=== PATIENT | female | born 1975 | race Caucasian/White ===

== ENCOUNTER 2018-12-02 14:26 | Emergency (ER) | payer SELFPAY ==
[~2018-12-02] VITALS: Ht 167.6 cm; Wt 81.6 kg
[2018-12-02] MEDS ORDERED: NS IV 1000 ML 1,000 ML IV SCH ×2 (14:50)
[2018-12-02] MEDS ORDERED: KETOROLAC 30 MG/ML VIAL IVP ONE (15:00)
[2018-12-02] MEDS ORDERED: ONDANSETRON 4 MG/2 ML (SDV) Z0FRAN IVP ONE ×2 (15:00→16:30)
[2018-12-02] MEDS ORDERED: CEFEPIME INJECTION 1,000 MG in WATER (STERILE) FOR INJECTION 10 ML IV ONE (15:00)
--- NOTE | 2018-12-02 15:01 | ED General ---
General Chief Complaint: General Problems/Pain Stated Complaint: TIRED, BLOOD IN URINE Nursing Triage Note: PT STATES SHE HAS HAD DARK URINE. PT IS RESPONSIVE TO VOICE AND STATES SHE IS WEAK AND TIRED. PT STATES WHEN SHE WIPES SHE HAS BLOOD ON THE TOILET PAPER. PT STATES [place] DISCHARGE FROM VAGINA. PT HAS HISTORY OF MIGRAINES. Nursing Sepsis Screen: No Definite Risk Source of Information: Patient, Spouse Exam Limitations: No Limitations History of Present Illness Date Seen by Provider: Dec 02, 2018 Time Seen by Provider: 14:42 Initial Comments Patient presents to the ER by private conveyance with her and chief complaint she's been very tired today and having some epigastric pain as well as suprapubic pain and dysuria. She's also noted in the last day or so some richmond non-malodorous discharge from the vagina. Last menstrual period started 11/25/18. She does not have her control on board. She's had an appendectomy when she was 13 as well as small amount of small bowel was removed and her right tube and ovary at the same time. She had a . . She is having nausea without vomiting. She says her stools are green but normal formed and not any diarrhea. Her symptoms of been going on for the past 2 weeks. At the beginning of her symptoms she went to the ER in [place] and they gave her a liter fluids told her she had gastroenteritis and send her home. The fluids made her feel better. She followed up with her primary care doctor because they did a CT of her abdomen which showed something concerning about her pancreas. He also noted she had some red blood cells in her urinalysis and she has seen gross blood on wiping that she thinks is from the urethra. She's post to follow-up with urology as well as primary care. She went to the walk-in clinic Sunday, 3 days ago and they just told her that she had tests that they were trying to get set up outpatient and there was nothing they could do on the weekend about it. Her latest bout of fatigue and abdominal pain started today after her left for work. He came home to get her bring her in when she called him. She feels chills. She has fibromyalgia and uses muscle relaxants and Fioricet. She uses Fioricet 1 tablet 2 hours ago. Allergies and Home Medications Allergies Coded Allergies: amoxicillin (Verified Adverse Reaction, Unknown, Puts her in a bad place, 12/02/18) clavulanic acid (Verified Adverse Reaction, Unknown, Puts her in a bad place, 12/02/18) sulfamethoxazole (Verified Adverse Reaction, Unknown, 12/02/18) trimethoprim (Verified Adverse Reaction, Unknown, 12/02/18) Patient Home Medication List Home Medication List Reviewed: Yes Review of Systems Review of Systems Constitutional: chills; No diaphoresis; fever, malaise, weakness EENTM: No hearing loss, No ear pain Respiratory: No cough, No short of breath Cardiovascular: No chest pain, No edema Gastrointestinal: abdominal pain (suprapubic and epigastric); No constipation, No diarrhea, No nausea Genitourinary: No discharge; dysuria, hematuria LMP: Nov 25, 2018 Musculoskeletal: No back pain, No joint pain Past Seblbxq-Kilnkr-Icjmjo Hx Patient Social History Alcohol Use: Occasionally Uses Recreational Drug Use: No Smoking Status: Current Everyday Smoker Type Used: Cigarettes Recent Foreign Travel: No Contact w/Someone Who Travel: No Recent Infectious Disease Expo: No Physical Exam-Suspected Sepsis Physical Exam Vital Signs Vital Signs - First Documented 12/02/18 14:34 Temp 100.6 Pulse 80 Resp 18 B/P (MAP) 124/86 (99) Pulse Ox 98 O2 Delivery Room Air Capillary Refill : Less Than 3 Seconds Blood Pressure Mean: 99 Height, Weight, BMI Height: 5'6.00" Weight: 180lbs. oz. 81.236399ki; BMI Method:Stated General Appearance: Mild Distress, Other Eyes: Bilateral Eye Normal Inspection, Bilateral Eye PERRL, Bilateral Eye EOMI HEENT: PERRL/EOMI, TMs Normal, Normal ENT Inspection; No Moist Mucous Membranes Neck: Full Range of Motion, Normal Inspection, Non Tender Respiratory: Lungs Clear, Normal Breath Sounds, No Accessory Muscle Use, No Respiratory Distress Cardiovascular: Regular Rate, Rhythm, No Edema, Normal Peripheral Pulses Gastrointestinal: Normal Bowel Sounds, Non Tender, Soft Extremity: Normal Capillary Refill, Normal Inspection, No Pedal Edema Neurologic/Psychiatric: Alert, Oriented x3, Other (slow speech, flat affect) Skin: normal color, warm/dry Focused Exam Lactate Level 12/02/18 14:45: Lactic Acid Level 1.38 Lactic Acid Level Laboratory Tests Test 12/02/18 14:45 Lactic Acid Level 1.38 MMOL/L (0.50-2.00) Progress/Results/Core Measures Suspected Sepsis Recent Fever Within 48 Hours: Yes Infection Criteria Present: Suspected New Infection New/Unexplained Altered Menta: No Sepsis Screen: No Definite Risk SIRS Temperature:100.6 Pulse: 80 Respiratory Rate: 18 Laboratory Tests 12/02/18 14:45: White Blood Count 9.2 Blood Pressure 124 /86 Mean: 99 12/02/18 14:45: Lactic Acid Level 1.38 Laboratory Tests 12/02/18 14:45: Creatinine 0.84, INR Comment 1.0, Platelet Count 328, Total Bilirubin 0.2 Results/Orders Lab Results Laboratory Tests Test 12/02/18 14:45 12/02/18 15:15 12/02/18 15:50 Range/Units White Blood Count 9.2 4.3-11.0 10^3/uL Red Blood Count 4.72 4.35-5.85 10^6/uL Hemoglobin 15.1 11.5-16.0 G/DL Hematocrit 44 35-52 % Mean Corpuscular Volume 92 80-99 FL Mean Corpuscular Hemoglobin 32 25-34 PG Mean Corpuscular Hemoglobin Concent 35 32-36 G/DL Red Cell Distribution Width 13.6 10.0-14.5 % Platelet Count 328 130-400 10^3/uL Mean Platelet Volume 10.1 7.4-10.4 FL Neutrophils (%) (Auto) 52 42-75 % Lymphocytes (%) (Auto) 40 12-44 % Monocytes (%) (Auto) 7 0-12 % Eosinophils (%) (Auto) 1 0-10 % Basophils (%) (Auto) 0 0-10 % Neutrophils # (Auto) 4.8 1.8-7.8 X 10^3 Lymphocytes # (Auto) 3.7 1.0-4.0 X 10^3 Monocytes # (Auto) 0.6 0.0-1.0 X 10^3 Eosinophils # (Auto) 0.1 0.0-0.3 10^3/uL Basophils # (Auto) 0.0 0.0-0.1 10^3/uL Prothrombin Time 13.0 12.2-14.7 SEC INR Comment 1.0 0.8-1.4 Activated Partial Thromboplast Time 29 24-35 SEC Sodium Level 140 135-145 MMOL/L Potassium Level 3.6 3.6-5.0 MMOL/L Chloride Level 107 98-107 MMOL/L Carbon Dioxide Level 22 21-32 MMOL/L Anion Gap 11 5-14 MMOL/L Blood Urea Nitrogen 7 7-18 MG/DL Creatinine 0.84 0.60-1.30 MG/DL Estimat Glomerular Filtration Rate > 60 BUN/Creatinine Ratio 8 Glucose Level 100 70-105 MG/DL Lactic Acid Level 1.38 0.50-2.00 MMOL/L Calcium Level 9.2 8.5-10.1 MG/DL Corrected Calcium 8.8 8.5-10.1 MG/DL Total Bilirubin 0.2 0.1-1.0 MG/DL Aspartate Amino Transf (AST/SGOT) 15 5-34 U/L Alanine Aminotransferase (ALT/SGPT) 24 0-55 U/L Alkaline Phosphatase 82 40-136 U/L Total Protein 7.3 6.4-8.2 GM/DL Albumin 4.5 3.2-4.5 GM/DL Lipase 23 8-78 U/L Serum Test, Qualitative NEGATIVE NEGATIVE Urine Color YELLOW Urine Clarity CLEAR Urine pH 7 5-9 Urine Specific [place] 1.005 L 1.016-1.022 Urine Protein NEGATIVE NEGATIVE Urine Glucose (UA) NEGATIVE NEGATIVE Urine Ketones NEGATIVE NEGATIVE Urine Nitrite NEGATIVE NEGATIVE Urine Bilirubin NEGATIVE NEGATIVE Urine Urobilinogen NORMAL NORMAL MG/DL Urine Leukocyte Esterase NEGATIVE NEGATIVE Urine RBC (Auto) 1+ H NEGATIVE Urine RBC NONE /HPF Urine WBC NONE /HPF Urine Crystals NONE /LPF Urine Bacteria TRACE /HPF Urine Casts NONE /LPF Urine Mucus NEGATIVE /LPF Urine Culture Indicated CULTURE PENDING C-Reactive Protein High Sensitivity 0.15 0.00-0.50 MG/DL Micro Results Microbiology 12/02/18 Wet Prep - Final, Complete My Orders Orders - FRIEDA COOK Straight Cath For Spec.-Adult (12/02/18 14:50) Wet Prep (12/02/18 14:50) Ondansetron Injection (Zofran Injectio (12/02/18 15:00) Ketorolac Injection (Toradol Injection) (12/02/18 15:00) Cbc With Automated Diff (12/02/18 14:50) Comprehensive Metabolic Panel (12/02/18 14:50) Blood Culture (12/02/18 14:50) Sputum Culture (12/02/18 14:50) Urinalysis (12/02/18 14:50) Urine Culture (12/02/18 14:50) Protime With Inr (12/02/18 14:50) Partial Thromboplastin Time (12/02/18 14:50) Chest 1 View, Ap/Pa Only (12/02/18 14:50) Ed Iv/Invasive Line Start (12/02/18 14:50) Ed Iv/Invasive Line Start (12/02/18 14:50) Vital Signs Adult Sepsis Patie Q15M (12/02/18 14:50) O2 (12/02/18 14:50) Remove Rings In Anticipation O (12/02/18 14:50) Lactic Acid Analyzer (12/02/18 14:50) Ns Iv 1000 Ml (Sodium Chloride 0.9%) (12/02/18 14:50) Ed Iv/Invasive Line Start (12/02/18 14:50) Ns Iv 1000 Ml (Sodium Chloride 0.9%) (12/02/18 14:50) Lipase (12/02/18 14:55) Pantoprazole Injection (Protonix Injecti (12/02/18 15:15) Hcg,Qualitative Serum (12/02/18 16:08) Hs C Reactive Protein (12/02/18 16:25) Ondansetron Injection (Zofran Injectio (12/02/18 16:30) Promethazine Injection (Phenergan Injec (12/02/18 16:30) Fentanyl Injection (Sublimaze Injection (12/02/18 16:30) Ct Abdomen/Pelvis W (12/02/18 16:25) Iohexol Injection (Omnipaque 350 Mg/Ml 1 (12/02/18 16:45) Received Contrast (Hold Metformin- Contr (12/02/18 16:45) Ns (Ivpb) (Sodium Chloride 0.9% Ivpb Bag (12/02/18 16:45) Medications Given in ED Current Medications Medications Dose Ordered Sig/Janet Route Start Time Stop Time Status Last Admin Dose Admin Fentanyl Citrate 50 mcg ONCE ONCE IVP 12/02/18 16:30 12/02/18 16:31 DC 12/02/18 17:06 50 MCG Ketorolac Tromethamine 30 mg ONCE ONCE IVP 12/02/18 15:00 12/02/18 15:01 DC 12/02/18 15:42 30 MG Ondansetron HCl 4 mg ONCE ONCE IVP 12/02/18 15:00 12/02/18 15:01 DC 12/02/18 15:37 4 MG Ondansetron HCl 4 mg ONCE ONCE IVP 12/02/18 16:30 12/02/18 16:31 DC 12/02/18 17:04 4 MG Pantoprazole 40 mg ONCE ONCE IV 12/02/18 15:15 12/02/18 15:16 DC 12/02/18 15:44 40 MG Promethazine HCl 25 mg ONCE ONCE IVP 12/02/18 16:30 12/02/18 16:31 DC 12/02/18 17:09 25 MG Vital Signs/I&O 12/02/18 14:34 Temp 100.6 Pulse 80 Resp 18 B/P (MAP) 124/86 (99) Pulse Ox 98 O2 Delivery Room Air Capillary Refill : Less Than 3 Seconds Blood Pressure Mean: 99 Progress Note #1: Time: 15:09 Progress Note Septic workup, 20 mL/kg IV fluids, cefepime for unknown source. Wet prep, straight catheter for urinalysis, Zofran and Toradol for symptoms. Pantoprazole. Lipase Progress Note #2: Time: 16:23 Progress Note The patient's nausea and pain were unaffected by the medications fluids. She continues to have epigastric pain. She we did review the the previous ER visit. It noted a hypo-attenuated lesion on the head of the pancreas. We'll give her some fentanyl, Phenergan little more Zofran and allow her to finish her fluids and obtain a CT of the abdomen and pelvis to see if there is any interval change. Otherwise her labs and urine were unremarkable. Reinforced to her the need to follow up outpatient with a GI specialist per her primary care's intent. Also of note on the CT of her abdomen and pelvis from the ER, 11/09/18 was she had diverticulosis without any evidence of diverticulitis. She did have generalized inflammatory changes in the small intestine consistent with an enteritis. We discussed with her the possibility she has a viral gastroenteritis causing her nausea and abdominal discomfort however is been going on for 20 days then it is probably reasonable to look again. Diagnostic Imaging Diagonstic Imaging: Xray Plain Films/CT/US/NM/MRI: chest (1v) Comments NAME: AILYN [facility]WIN [facility] REC#: [id number] PT STATUS: REG ER : 1975 PHYSICIAN: FRIEDA COOK MD ADMIT DATE: 12/02/18/ER Draft Date of Exam:12/02/18 CHEST 1 VIEW, AP/PA ONLY INDICATION: Chest pain. COMPARISON: None. FINDINGS: Single frontal view of the chest demonstrates normal heart size and pulmonary vascularity. The lungs are well aerated and clear. No large pleural effusion or pneumothorax is seen. The visualized osseous structures show no acute abnormalities. IMPRESSION: 1. No acute cardiopulmonary process. Dictated on workstation # [id number] Dict: 12/02/18 1605 Trans: 12/02/18 1608 [facility] [phone] Interpreted by: CAPO FINK MD Electronically signed by: Reviewed: Reviewed by Me Diagonstic Imaging: CT (with IV contrast) Plain Films/CT/US/NM/MRI: abdomen, pelvis Comments NAME: AILYN GOODWIN [facility] REC#: [id number] PT STATUS: REG ER : 1975 PHYSICIAN: FRIEDA COOK MD ADMIT DATE: 12/02/18/ER Signed Date of Exam:12/02/18 CT ABDOMEN/PELVIS W PROCEDURE: CT abdomen and pelvis with contrast. TECHNIQUE: Multiple contiguous axial images were obtained through the abdomen and pelvis after administration of intravenous contrast. Auto Exposure Controls were utilized during the CT exam to meet ALARA standards for radiation dose reduction. INDICATION: Upper abdominal pain, blood in urine. COMPARISON: None available. FINDINGS: Lower chest: The lung bases are clear. No pericardial or pleural effusion. Peritoneum: No free intraperitoneal air or fluid. Liver and biliary system: The liver is normal. The gallbladder is normal. No biliary duct dilation. Spleen and Pancreas: Spleen is normal. No peripancreatic inflammatory changes. Mild soft tissue fullness at the level of the pancreatic head and uncinate process is present, though this is similar in attenuation to the surrounding pancreatic body and tail. Adrenals: Normal. tract: The kidneys enhance normally without suspicious mass or obstruction. Urinary bladder is distended without wall thickening. The uterus and ovaries are normal in appearance. GI tract: Stomach is decompressed, limiting assessment. No bowel obstruction. No pericolonic inflammatory changes. Sigmoid colon diverticulosis without diverticulitis. Appendix is not seen with certainty, although there are no inflammatory changes to suggest acute appendicitis. Vasculature and Lymph nodes: Normal caliber aorta has moderate atherosclerotic plaquing. No abdominal or pelvic lymphadenopathy. Musculoskeletal: No concerning osseous lesion. IMPRESSION: 1. Diffuse low-attenuation of the pancreas is most likely physiologic for this patient. Correlation with serum lipase values is suggested to exclude mild acute interstitial pancreatitis. 2. No urinary tract calculi or obstructive uropathy. 3. Sigmoid colon diverticulosis without diverticulitis. Dictated by: Dictated on workstation # [id number] Dict: 12/02/18 1659 Trans: 12/02/18 1718 [facility] [id number] Interpreted by: ROSE MARY HOUGH MD Electronically signed by: ROSE MARY HOUGH MD 12/02/18 1718 Reviewed: Reviewed by Me Departure Impression Primary Impression: Gastroenteritis Disposition: 01 HOME, SELF-CARE Condition: Improved Departure-Patient Inst. Decision time for Depature: 17:40 Referrals: [facility] [place]) Primary Care Physician Patient Instructions: [id number] Add. Discharge Instructions: If you have nausea or vomiting take one to [address] under your tongue every 6 hours as needed. If you're still having nausea or vomiting you can use one tablet of Phenergan every 6 hours as needed. Stay well-hydrated with plenty of fluids. Continue to follow up with your primary care and pursue outpatient workup of the CT imaging changes seen on your pancreas. All discharge instructions reviewed with patient and/or family. Voiced understanding. Scripts Promethazine HCl (Promethazine Tablet) 25 Mg Tablet 25 MG PO Q6H PRN for NAUSEA/VOMITING, #12 TAB 0 Refills Prov: FRIEDA COOK 12/02/18 Ondansetron (Ondansetron Odt) 4 Mg Tab.rapdis 4 MG PO Q6H PRN for NAUSEA/VOMITING, #15 TAB 0 Refills Prov: FRIEDA COOK 12/02/18 FRIEDA COOK Dec 02, 2018 15:01
[2018-12-02 15:06] LABS: BASOPHILS % (AUTO) 0 % (0-10); EOSINOPHILS # (AUTO) 0.1 10^3/uL (0.0-0.3); EOSINOPHILS % (AUTO) 1 % (0-10); HEMATOCRIT 44 % (35-52); HEMOGLOBIN 15.1 G/DL (11.5-16.0); LYMPHOCYTES # (AUTO) 3.7 X 10^3 (1.0-4.0); LYMPHOCYTES % (AUTO) 40 % (12-44); MEAN CORPUSCULAR HEMOGLOBIN 32 PG (25-34); MEAN CORPUSCULAR HGB CONC 35 G/DL (32-36); MEAN CORPUSCULAR VOLUME 92 FL (80-99); MEAN PLATELET VOLUME 10.1 FL (7.4-10.4); MONOCYTES # (AUTO) 0.6 X 10^3 (0.0-1.0); MONOCYTES % (AUTO) 7 % (0-12); NEUTROPHILS # (AUTO) 4.8 X 10^3 (1.8-7.8); NEUTROPHILS % (AUTO) 52 % (42-75); PLATELET COUNT 328 10^3/uL (130-400); RED CELL DISTRIBUTION WIDTH 13.6 % (10.0-14.5); WHITE BLOOD COUNT 9.2 10^3/uL (4.3-11.0)
[2018-12-02] MEDS ORDERED: PANTOPRAZOLE 40 MG (PROTONIX) VIAL IV ONE (15:15)
[2018-12-02 15:26] LABS: ALANINE AMINOTRANSFERASE 24 U/L (0-55); ALBUMIN 4.5 GM/DL (3.2-4.5); ALKALINE PHOSPHATASE 82 U/L (40-136); BILIRUBIN,TOTAL 0.2 MG/DL (0.1-1.0); BUN/CREATININE RATIO 8; CALCIUM 9.2 MG/DL (8.5-10.1); CARBON DIOXIDE 22 MMOL/L (21-32); CHLORIDE 107 MMOL/L (98-107); CREATININE SERUM 0.84 MG/DL (0.60-1.30); GFR ESTIMATED > 60; GLUCOSE 100 MG/DL (70-105); LIPASE 23 U/L (8-78); POTASSIUM 3.6 MMOL/L (3.6-5.0); SODIUM 140 MMOL/L (135-145); TOTAL PROTEIN 7.3 GM/DL (6.4-8.2)
[2018-12-02 15:33] LABS: BILIRUBIN,URINE NEGATIVE (NEGATIVE); CLARITY,URINE CLEAR; COLOR,URINE YELLOW; GLUCOSE, URINE (UA) NEGATIVE (NEGATIVE); KETONES,URINE NEGATIVE (NEGATIVE); LEUKOCYTE ESTERASE ,URINE NEGATIVE (NEGATIVE); NITRITE,URINE NEGATIVE (NEGATIVE); PH,URINE 7 (5-9); PROTEIN,URINE NEGATIVE (NEGATIVE); UROBILINOGEN,URINE NORMAL (NORMAL)
[2018-12-02 15:43] LABS: BACTERIA,URINE TRACE /HPF
--- NOTE | 2018-12-02 16:08 | Diagnostic Imaging Report ---
INDICATION: Chest pain. COMPARISON: None. FINDINGS: Single frontal view of the chest demonstrates normal heart size and pulmonary vascularity. The lungs are well aerated and clear. No large pleural effusion or pneumothorax is seen. The visualized osseous structures show no acute abnormalities. IMPRESSION: 1. No acute cardiopulmonary process. Dictated by: Dictated on workstation # [id number]
[2018-12-02] MEDS ORDERED: fentaNYL INJECTION 100 MCG/2 ML AMP IVP ONE (16:30)
[2018-12-02] MEDS ORDERED: PROMETHAZINE INJ 25 MG/ML (PHENERGAN) AMP IVP ONE (16:30)
[2018-12-02] MEDS ORDERED: HOLD METFORMIN - RECEIVED CONTRAST 20 ML VIAL IV SCH (16:45)
[2018-12-02] MEDS ORDERED: NS 100 ML (IVPB) BAG IV ONE (16:45)
[2018-12-02] MEDS ORDERED: IOHEXOL 350 MG/ML 100 ML (OMNIPAQUE 350) VIAL IV ONE (16:45)
--- NOTE | 2018-12-02 17:06 | Diagnostic Imaging Report ---
PROCEDURE: CT abdomen and pelvis with contrast. TECHNIQUE: Multiple contiguous axial images were obtained through the abdomen and pelvis after administration of intravenous contrast. Auto Exposure Controls were utilized during the CT exam to meet ALARA standards for radiation dose reduction. INDICATION: Upper abdominal pain, blood in urine. COMPARISON: None available. FINDINGS: Lower chest: The lung bases are clear. No pericardial or pleural effusion. Peritoneum: No free intraperitoneal air or fluid. Liver and biliary system: The liver is normal. The gallbladder is normal. No biliary duct dilation. Spleen and Pancreas: Spleen is normal. No peripancreatic inflammatory changes. Mild soft tissue fullness at the level of the pancreatic head and uncinate process is present, though this is similar in attenuation to the surrounding pancreatic body and tail. Adrenals: Normal. tract: The kidneys enhance normally without suspicious mass or obstruction. Urinary bladder is distended without wall thickening. The uterus and ovaries are normal in appearance. GI tract: Stomach is decompressed, limiting assessment. No bowel obstruction. No pericolonic inflammatory changes. Sigmoid colon diverticulosis without diverticulitis. Appendix is not seen with certainty, although there are no inflammatory changes to suggest acute appendicitis. Vasculature and Lymph nodes: Normal caliber aorta has moderate atherosclerotic plaquing. No abdominal or pelvic lymphadenopathy. Musculoskeletal: No concerning osseous lesion. IMPRESSION: 1. Diffuse low-attenuation of the pancreas is most likely physiologic for this patient. Correlation with serum lipase values is suggested to exclude mild acute interstitial pancreatitis. 2. No urinary tract calculi or obstructive uropathy. 3. Sigmoid colon diverticulosis without diverticulitis. Dictated by: Dictated on workstation # [id number]
--- NOTE | 2018-12-02 17:40 | NUR ---
Pt resting comfortably in bed. Pt reports relief after last meds given.
[2018-12-02] MEDS ORDERED: PROM25TA14 PO (18:07)
[2018-12-02] MEDS ORDERED: ONDA4TAB11 PO (18:07)
[2018-12-02 19:07] VITALS: BP 119/64
== END 2018-12-02 18:17 | disposition home or self-care (01) ==
LOC: ER 14:28
DX: K52.9 Noninfective gastroenteritis and colitis, unspecified (principal); F17.210 Nicotine dependence, cigarettes, uncomplicated; Z90.49 Acquired absence of other specified parts of digestive tract; Z88.1 Allergy status to other antibiotic agents; Z88.2 Allergy status to sulfonamides
CPT/HCPCS: 36415; 51701; 71045; 74177; 80053; 81000; 83605; 83690; 84703; 85025; 85610; 85730; 86141; 87040; 87088; 87210

== ENCOUNTER → 2018-12-10 | Outpatient (CLI) | payer SELFPAY ==
[~2018-12-10] MED LIST: ONDA4TAB11 PO; PROM25TA14 PO
--- NOTE | 2018-12-10 15:36 | Diagnostic Imaging Report ---
PROCEDURE: MR imaging cholangiography-pancreatography. TECHNIQUE: Multiplanar imaging of the abdomen was performed on a 1.5 Alexsandra magnet without contrast. 3D reconstructions were made for the MRCP INDICATION: Upper and mid abdominal pain with nausea. COMPARISON: Correlation is made with CT study performed on 12/02/2018. FINDINGS: No discrete liver mass is identified. The gallbladder is unremarkable. No biliary ductal dilatation is detected. The pancreas demonstrates fairly homogeneous signal intensity. No discrete pancreatic mass is identified. No pancreatic ductal dilatation is seen. Spleen and kidneys are unremarkable. No adrenal mass is identified. There is no ascites. MRCP protocol demonstrates normal caliber intrahepatic and extrahepatic bile ducts. No filling defects are seen to suggest common duct stone. IMPRESSION: Unremarkable MRI and MRCP of the abdomen. Dictated by: Dictated on workstation # [id number]
== END ==
LOC: RAD 13:06
DX: R10.10 Upper abdominal pain, unspecified (principal); R11.0 Nausea
CPT/HCPCS: 74181